=== PATIENT | male | born 1990 | race Caucasian/White ===

== ENCOUNTER 2019-02-12 18:15 | Emergency (ER) | payer SELFPAY ==
--- NOTE | 2019-02-12 18:30 | NUR ---
1ST CALL TO BE TRIAGED, NO ANSWER. PATIENT LEFT WITHOUT BEING SEEN BY DR. ARAYA. NO FURTHER CARE PROVIDED FOR PATIENT. 2ND CALL, NO ANSWER 3RD CALL, NO ANSWER.
== END 2019-02-12 18:30 | disposition left against medical advice (07) ==
LOC: MED 18:15
DX: Z53.21 Procedure and treatment not carried out due to patient leaving prior to being seen by health care provider (principal)

== ENCOUNTER 2019-02-13 14:31 | Emergency (ER) | payer MEDICAID ==
[~2019-02-13] VITALS: Ht 175.3 cm; Wt 74.8 kg
[2019-02-13 14:55] VITALS: BP 125/91
--- NOTE | 2019-02-13 16:04 | NUR ---
PATIENT AMBULATED TO BED #9
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
[2019-02-13 17:16] VITALS: BP 145/79
--- NOTE | 2019-02-13 17:16 | NUR ---
Patient discharged with v/s stable. Written and verbal after care instructions given and explained. Patient alert, oriented and verbalized understanding of instructions. Ambulatory with steady gait. All questions addressed prior to discharge. ID band removed. Patient advised to follow up with PMD. Rx of Motrin and Clindamycin given. Patient educated on indication of medication including possible reaction and side effects. Opportunity to ask questions provided and answered.
== END 2019-02-13 17:16 | disposition home or self-care (01) ==
LOC: MED 14:31
DX: S02.40DA Maxillary fracture, left side, initial encounter for closed fracture (principal); R05 Cough; J45.909 Unspecified asthma, uncomplicated; Y04.0XXA Assault by unarmed brawl or fight, initial encounter; Y93.89 Activity, other specified; Y92.89 Other specified places as the place of occurrence of the external cause; Y99.8 Other external cause status
CPT/HCPCS: 70486; 71045; 81002; 81025; 99284

== ENCOUNTER 2019-02-18 14:42 | Emergency (ER) | payer MEDICAID ==
[~2019-02-18] VITALS: Ht 175.3 cm; Wt 69.9 kg
[2019-02-18 14:45] VITALS: BP 119/50
--- NOTE | 2019-02-18 14:50 | NUR ---
Lakesha isaac in EDM - 02/18/19 [address] BOCANEGRA MADE AWARE OF PATIENTS CONDITION. OXYGEN 2LNC APPLIED.
--- NOTE | 2019-02-18 14:50 | NUR ---
DR. BOCANEGRA MADE AWARE OF PATIENTS CONDITION. OXYGEN 2LNC APPLIED
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
[2019-02-18] MEDS ORDERED: ALBUTEROL SULFATE/IPRATROPIU 3 ML SOL IH ONE (15:00)
[2019-02-18] MEDS ORDERED: predniSONE 20 MG TAB PO ONE (15:00)
[2019-02-18] MEDS ORDERED: ALBUTEROL 0.083% 2.5 MG/3 ML NEBU INH ONE ×2 (15:30)
[2019-02-18] MEDS ORDERED: NACL 0.9% 1,000 ML IV ONE (16:20)
[2019-02-18] MEDS ORDERED: MAG SULF 2000 MG/WATER PREMIX 50 ML IV ONE (16:20)
[2019-02-18] MEDS ORDERED: LORazepam 2 MG/ML VIAL IVP ONE (16:20)
[2019-02-18 17:22] LABS: BASOPHILS % (AUTO) 0.2 % (0.0-2.0); EOSINOPHILS # (AUTO) 0.5 K/uL (0-0.4); EOSINOPHILS % (AUTO) 3.5 % (0.0-4.0); HEMATOCRIT 41.4 % (36-52); HEMOGLOBIN 13.9 g/dL (12.0-18.0); LYMPHOCYTES # (AUTO) 0.4 K/uL (2.0-11.5); MEAN CORPUSCULAR HEMOGLOBIN 30 pg (27-31); MEAN CORPUSCULAR HGB CONC 34 g/dL (33-37); MEAN CORPUSCULAR VOLUME 89.4 fL (80-94); MONOCYTES # (AUTO) 0.4 K/uL (0.8-1.0); MONOCYTES % (AUTO) 3.2 % (1.7-9.3); NEUTROPHILS # (AUTO) 12.3 K/uL (1.8-7.7); NEUTROPHILS % (AUTO) 90.1 % (42.2-75.2); PLATELET COUNT (AUTO) 218 K/uL (140-450); RED BLOOD CELL COUNT(AUTO) 4.63 MIL/uL (4.20-6.10); RED CELL DISTRIBUTION WIDTH 14.4 % (11.6-13.7); WHITE BLOOD COUNT (AUTO) 13.7 K/uL (4.8-10.8)
[2019-02-18 17:30] LABS: ANION GAP 12.6 (8-16); CARBON DIOXIDE 28.7 mmol/L (21-32); CREATININE 0.8 mg/dL (0.7-1.3); POTASSIUM 3.3 mmol/L (3.5-5.1)
[2019-02-18 17:36] LABS: ALBUMIN 3.6 g/dL (3.4-5.0); TOTAL BILIRUBIN 1.5 mg/dL (0.0-1.0)
--- NOTE | 2019-02-18 18:15 | NUR ---
Patient does not wish to proceed with medical care recommended by Dr Mendez. Patient given information related to possible complications, up to and including , which could occur as a result of leaving hospital at this time. Patient verbalizes understanding of risks involved leaving against medical advice. Patient has signed AMA form. Discharge instruction provided. paper handed to the pt. ID band removed.
[2019-02-18 18:18] VITALS: BP 135/91
--- NOTE | 2019-02-25 08:20 | NUR ---
Magnesium IVPB ended at 1830. Addendum: 02/25/19 at 0820 by [email or web address] end time 1820 not 1830 for Magnesium.
== END 2019-02-18 18:21 | disposition left against medical advice (07) ==
LOC: MED 14:42
DX: J45.901 Unspecified asthma with (acute) exacerbation (principal); F41.9 Anxiety disorder, unspecified
CPT/HCPCS: 36415; 71045; 80053; 85025; 87804; 94640; 96365; 96366; 96375; 99284; J2060; J3475; J7030; J7512; J7613; J7620; Q0092

== ENCOUNTER 2019-10-24 00:35 | Inpatient (IN) | payer MEDICAID ==
[~2019-10-24] VITALS: Ht 175.3 cm; Wt 68.9 kg
[2019-10-24 00:43] VITALS: BP 142/104
--- NOTE | 2019-10-24 00:50 | NUR ---
PT BLAYNE ALS FROM HOME FOR POSSIBLE OVERDOSE. PTS FATHER STATED HE TOOK "A HAND FULL" OF OXYCODONE PT STATES HE CONSUMED 3 PILLS. PT AWAKE AND ALERT. no loc. no n,v. no resp distress noted. no signs of sucidal thoughts or si. vss. LUNG SOUNDS CLEAR ALL THROUGHOUT. rx: methadone and xanax. nka. pmh: anxiety
--- NOTE | 2019-10-24 00:50 | NUR ---
PT IS ON A 5150 HOLD BY SHENG CALLOWAY.
--- NOTE | 2019-10-24 01:02 | NUR ---
TELEPSYCH REQUEST INITIATED
--- NOTE | 2019-10-24 01:11 | NUR ---
Lakesha isaca in ED - 10/24/19 at [address] [facility] PSYCH TALKING TO PT THRU TELE PSYCH.
--- NOTE | 2019-10-24 01:11 | NUR ---
PSYCHATRIST TALKING TO PT THRU TELE PSYCH.
[2019-10-24 01:14] LABS: ACETAMINOPHEN 28.7 ug/ml (10-30); ANION GAP 15.7 (8-16); ASPARTATE AMINOTRANSFERASE 21 U/L (15-37); CARBON DIOXIDE 28.4 mmol/L (21-32); CHLORIDE 103 mmol/L (98-107); POTASSIUM 4.1 mmol/L (3.5-5.1); SODIUM SERUM 143 mmol/L (136-145); TOTAL BILIRUBIN 0.6 mg/dL (0.0-1.0); UREA NITROGEN, BLOOD 9 mg/dL (7-18)
[2019-10-24 01:30] LABS: BASOPHILS # (AUTO) 0.1 K/uL (0.00-0.22); BASOPHILS % (AUTO) 0.6 % (0.0-2.0); EOSINOPHILS # (AUTO) 0.9 K/uL (0-0.4); EOSINOPHILS % (AUTO) 10.4 % (0.0-4.0); HEMATOCRIT 43.6 % (36-52); HEMOGLOBIN 14.6 g/dL (12.0-18.0); LYMPHOCYTES # (AUTO) 3.2 K/uL (2.0-11.5); LYMPHOCYTES % (AUTO) 35.8 % (20.5-51.1); MEAN CORPUSCULAR HEMOGLOBIN 30 pg (27-31); MEAN CORPUSCULAR HGB CONC 33 g/dL (33-37); MEAN CORPUSCULAR VOLUME 88.6 fL (80-94); MONOCYTES # (AUTO) 0.8 K/uL (0.8-1.0); MONOCYTES % (AUTO) 8.7 % (1.7-9.3); NEUTROPHILS % (AUTO) 44.5 % (42.2-75.2); PLATELET COUNT (AUTO) 180 K/uL (140-450); RED BLOOD CELL COUNT(AUTO) 4.93 MIL/uL (4.20-6.10); RED CELL DISTRIBUTION WIDTH 14.2 % (11.6-13.7); WHITE BLOOD COUNT (AUTO) 9.1 K/uL (4.8-10.8)
--- NOTE | 2019-10-24 01:31 | NUR ---
SPOKE TO TIM FROM POISION CONTROL AND SHE SUGGESTED 50 G CHARCOAL AND 12 HOUR MEDICAL OBSERVATION AND EKG BE DONE ON PT.
[2019-10-24] MEDS ORDERED: ACTIVATED CHARCOAL 50 GM/240 ML TUBE PO ONE (01:40)
[2019-10-24 01:44] LABS: ALBUMIN 3.8 g/dL (3.4-5.0); CREATININE 0.8 mg/dL (0.7-1.3); GFR ARICAN-AMERICAN 149 mL/min (>90); GLUCOSE 92 mg/dL (74-106)
[2019-10-24 01:45] LABS: SALICYLATE < 2.8 mg/dL (2.8-20.0)
--- NOTE | 2019-10-24 01:48 | NUR ---
EKG DONE AT BEDSIDE
[2019-10-24] MEDS ORDERED: HYDROcodone/APAP 7.5/325 MG 1 TAB PO PRN (01:55)
[2019-10-24] MEDS ORDERED: ONDANSETRON 4 MG/2 ML VIAL IM/IVP PRN (01:55)
[2019-10-24] MEDS ORDERED: DOCUSATE SODIUM 100 MG GELCAP PO PRN (01:55)
[2019-10-24] MEDS ORDERED: ACETAMINOPHEN 325 MG TAB PO PRN (01:55)
[2019-10-24 01:56] LABS: APPEARANCE,URINE SL CLOUDY (CLEAR); BILIRUBIN,URINE NEGATIVE (NEGATIVE); BLOOD, URINE NEGATIVE (NEGATIVE); COLOR,URINE YELLOW (YELLOW); LEUKOCYTE ESTERASE ,URINE NEGATIVE (NEGATIVE); NITRITE, URINE NEGATIVE (NEGATIVE); PH,URINE 5.5 (5.0-9.0); UGLUCOSE NEGATIVE (NEGATIVE)
[2019-10-24] MEDS ORDERED: ALPR1TER PO (02:00)
[2019-10-24] MEDS ORDERED: DOL10 PO (02:00)
[2019-10-24 02:09] LABS: BARBITURATE, URINE NEG. ng/ml (NEG <=200); BENZODIAZEPINE, URINE POS. ng/mL (NEG <=200); CANNABINOID, URINE POS. ng/mL (NEG <=50); COCAINE, URINE NEG. ng/mL (NEG <=300); OPIATE, URINE POS. ng/mL (NEG <=2000); PHENCYCLIDINE SCREEN,URINE NEG. ng/mL (NEG <=25)
[2019-10-24 02:21] LABS: MAGNESIUM 2.2 mg/dL (1.8-2.4); PHOSPHORUS 4.6 mg/dL (2.5-4.9); THYROID STIMULATING HORMONE 5.21 uIU/mL (0.34-3.74)
--- NOTE | 2019-10-24 02:32 | NUR ---
PER VERBAL ORDER FROM DR CAMPBELL, PT PLACED ON O2 AT 2 L/MIN VIA NASAL CANNULA
[2019-10-24] MEDS ORDERED: NALOXONE 0.4 MG/ML VIAL IVP ONE (02:35)
--- NOTE | 2019-10-24 03:00 | NUR ---
Patient will be admitted to care of DR. GUZMAN. Admited to TELE. Will go to room 109A. Belongings list completed. Report to COY MCCAIN.
--- NOTE | 2019-10-24 03:00 | NUR ---
RECEIVED PATIENT VIA GURNEY FROM ED. PATIENT IS AMBULATORY. BEDSIDE REPORT GIVEN FROM ADA. IV ACCESS ON LEFT THUMB 22 GAUGE, PATENT AND INTACT. PATIENT WAS PUT ON 2LPM VIA NASAL CANNULA DUE TO LOW SATURATION. PT SPEAKS GEORGIAN. ORIENTED TO ROOM. BOARD UPDATED. INITIAL ASSESSMENT DONE. INITIAL VITAL SIGNS TAKEN. BED IN LOW, CALL LIGHT WITHIN PATIENT REACH. WILL CONTINUE TO MONITOR PATIENT.
[2019-10-24] MEDS: NACL 0.9% 1,000 ML IV SCH ×4 (03:24→23:30)
[2019-10-24] MEDS ORDERED: KETOROLAC 15 MG/ML VIAL IVP PRN (03:25)
[2019-10-24 04:05] VITALS: BP 141/78
--- NOTE | 2019-10-24 05:00 | NUR ---
SHRADDHA FROM POISON CONTROL CALLED TO CHECK UP ON PATIENT. REQUESTED REDRAW FOR ACETAMINOPHEN LAB. WANTS TO MONITOR ACETAMINOPHEN LEVELS. IF INCREASE IN LEVEL TO CALL POISON CONTROL.
--- NOTE | 2019-10-24 06:26 | NUR ---
PT IN STABLE CONDITION. WILL ENDORSE TO AM SHIFT NURSE FOR CONTINUITY OF CARE.
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
--- NOTE | 2019-10-24 07:45 | NUR ---
RECEIVED A CALL FROM PT'S MOTHER PHILIPPE, SHE INFORMED ME THAT PT HAS A HX OF SEVERE ASTHMA ATTACKS AND NEEDS TO BE ON DAILY METHADONE FOR HIS DRUG ADDICTION. PER PT'S MOTHER, PT GOES TO [facility] IN [place] FOR METHADONE. I NOTIFIED MD DR HOLLIDAY OF THIS INFORMATION, DR HOLLIDAY WILL CALL THE CLINIC TO VERIFY METHADONE DOSE.
[2019-10-24 08:00] VITALS: BP 128/76
[2019-10-24] MEDS ORDERED: clonazePAM 0.5 MG TAB PO PRN (08:05)
[2019-10-24] MEDS: METHADONE 10 MG TAB PO SCH (09:19)
--- NOTE | 2019-10-24 09:24 | NUR ---
AM SCHEDULED METHADONE ADMINISTERED, PT TOLERATED WELL AND WENT BACK TO SLEEP RIGHT AWAY. 2L O2 NC IN PLACE. O2 SAT IS 95% AT THIS TIME.
--- NOTE | 2019-10-24 10:21 | NUR ---
FAXED OVER REQUEST TO [facility] FOR THE RELEASE OF PT'S METHADONE THERAPY RECORD, PER MD ORDER.
[2019-10-24 12:00] VITALS: BP 117/75
--- NOTE | 2019-10-24 13:05 | NUR ---
PT RESTING COMFORTABLY IN BED, NO S/S OF DISTRESS SEEN. 2L O2 NC FLOWING. O2 IS 94%
--- NOTE | 2019-10-24 15:28 | NUR ---
PT'S PARENTS ARE HERE TALKING WITH DR KELLEY.
[2019-10-24 16:00] VITALS: BP 102/63
--- NOTE | 2019-10-24 16:15 | NUR ---
PT GETTING A BREATHING TX AT THIS TIME
[2019-10-24] MEDS: ALBUTEROL SULFATE/IPRATROPIU 3 ML SOL IH PRN (16:28)
--- NOTE | 2019-10-24 19:12 | NUR ---
ENDORSED PT TO METAL SPONGE MAKING MACHINE OPERATOR NURSE. PT IN INSTABLE CONDITION
--- NOTE | 2019-10-24 19:15 | NUR ---
RECEIVED BEDSIDE REPORT FROM AM SHIFT NURSE. PATIENT IS LYING IN BED ASLEEP. VISIBLE CHEST RISE AND FALL NOTED. NO SOB OR DISTRESS. PATIENT IS ON O2 VIA NASAL CANNULA AT 2LPM. IV ACCESS ON LEFT THUMB 22 GAUGE, PATENT AND INTACT. DRESSING NOTED ON RIGHT WRIST, DRY AND INTACT. INITIAL ASSESSMENT DONE. BED IN LOW POSITION. BOARD UPDATED. CALL LIGHT WITHIN PATIENT REACH. WILL CONTINUE TO MONITOR PATIENT.
[2019-10-24 20:05] VITALS: BP 101/71
--- NOTE | 2019-10-24 20:12 | NUR ---
AWAKE AND ALERT PATIENT REFUSING TO USE SUPPLEMENTAL OXYGEN AT THIS TIME
--- NOTE | 2019-10-24 20:30 | NUR ---
VITAL SIGNS TAKEN AT THIS TIME. PATIENT SITTING ON BED WATCHING TV. NO SOB OR DISTRESS NOTED. WILL CONTINUE TO MONITOR PATIENT.
--- NOTE | 2019-10-24 22:01 | NUR ---
ROUNDS DONE. VISIBLE CHEST RISE AND FALL NOTED. CALL LIGHT WITHIN PATIENT REACH. WILL CONTINUE TO MONITOR PATIENT.
[2019-10-25 00:05] VITALS: BP 114/78
--- NOTE | 2019-10-25 00:05 | NUR ---
VITAL SIGNS TAKEN AT THIS TIME. NO DISTRESS NOTED. WILL CONTINUE TO MONITOR PATIENT.
--- NOTE | 2019-10-25 02:15 | NUR ---
ROUNDS DONE. VISIBLE CHEST RISE AND FALL NOTED. CALL LIGHT WITHIN PATIENT REACH. WILL CONTINUE TO MONITOR PATIENT.
[2019-10-25] MEDS: ALBUTEROL SULFATE/IPRATROPIU 3 ML SOL IH PRN ×2 (03:21→12:36)
--- NOTE | 2019-10-25 04:01 | NUR ---
VITAL SIGNS TAKEN. NO DISTRESS NOTED. WILL CONTINUE TO MONITOR PATIENT.
[2019-10-25 04:10] VITALS: BP 130/91
--- NOTE | 2019-10-25 05:30 | NUR ---
PATIENT VOMITED 150ML AT THIS TIME. PATIENT STATES HE WAS NAUSEATED BUT FEELS BETTER AND DOES NOT NEED MEDICATION. WILL CONTINUE TO MONITOR PATIENT.
--- NOTE | 2019-10-25 06:45 | NUR ---
PATIENT HAS BEEN SCREENED AND CATEGORIZED LOW NUTRITION RISK. PATIENT WILL BE SEEN WITHIN 7 DAYS OF ADMISSION. 10/30/19 MILLA TORRES MS, RDN
--- NOTE | 2019-10-25 06:48 | NUR ---
PATIENT IN STABLE CONDITION. SAFETY MEASURES IN PLACE. CALL LIGHT WITHIN PATIENT REACH. WILL ENDORSE TO AM SHIFT NURSE FOR CONTINUITY OF CARE.
[2019-10-25 07:06] LABS: BASOPHILS % (AUTO) 0.4 % (0.0-2.0); EOSINOPHILS % (AUTO) 11.7 % (0.0-4.0); HEMATOCRIT 39.4 % (36-52); HEMOGLOBIN 13.2 g/dL (12.0-18.0); LYMPHOCYTES # (AUTO) 2.3 K/uL (2.0-11.5); LYMPHOCYTES % (AUTO) 27.4 % (20.5-51.1); MEAN CORPUSCULAR HEMOGLOBIN 30 pg (27-31); MEAN CORPUSCULAR HGB CONC 34 g/dL (33-37); MEAN CORPUSCULAR VOLUME 88.9 fL (80-94); MONOCYTES # (AUTO) 0.6 K/uL (0.8-1.0); MONOCYTES % (AUTO) 7.3 % (1.7-9.3); NEUTROPHILS # (AUTO) 4.5 K/uL (1.8-7.7); NEUTROPHILS % (AUTO) 53.2 % (42.2-75.2); PLATELET COUNT (AUTO) 165 K/uL (140-450); RED BLOOD CELL COUNT(AUTO) 4.43 MIL/uL (4.20-6.10); RED CELL DISTRIBUTION WIDTH 14.1 % (11.6-13.7); WHITE BLOOD COUNT (AUTO) 8.4 K/uL (4.8-10.8)
--- NOTE | 2019-10-25 07:15 | NUR ---
RECEIVED BEDSIDE REPORT FROM DIP STAND LOADER NURSE, PT IS ASLEEP, NO S/S OF ACUTE DISTRESS, NO SOB. PT IS CURRENTLY STILL ON 2L O2 NC, O2 SAT IS 95%. PER NIGHT NURSE, PT HAD EPISODE OF EMESIS X 1, AFTER WHICH HE SAID HE FELT BETTER. NO C/O NAUSEA AT THIS TIME. IV SITE L THUMB 22 G, INFUSING NS 100 ML/HR. CALL LIGHT IS WITHIN REACH. WILL CONTINUE TO MONITOR.
[2019-10-25 07:19] LABS: ANION GAP 11.6 (8-16); CARBON DIOXIDE 28.1 mmol/L (21-32); CREATININE 0.7 mg/dL (0.7-1.3); POTASSIUM 3.7 mmol/L (3.5-5.1)
[2019-10-25 07:33] LABS: CHOL/HDL RATIO 3.4 (1-4.5)
[2019-10-25 07:52] LABS: MAGNESIUM 1.9 mg/dL (1.8-2.4); PHOSPHORUS 3.2 mg/dL (2.5-4.9)
[2019-10-25 08:00] VITALS: BP 125/80
[2019-10-25] MEDS: METHADONE 10 MG TAB PO SCH (10:06)
--- NOTE | 2019-10-25 10:10 | NUR ---
SCHEDULE METHADONE ADMINISTERED. PT TOLERATED WELL. I OFFERED PT TO HAVE A BREATHING TX, BUT PT DECLINED AT THIS TIME. HE STATES THAT HE FEELS FINE, AND WILL CALL ME IF HE FEELS LIKE HE NEEDS A BREATHING TX.
[2019-10-25 12:00] VITALS: BP 134/79
[2019-10-25] MEDS: methylPREDNISolone SS 40 MG/ML VIAL IVP SCH ×2 (12:48→20:37)
--- NOTE | 2019-10-25 12:58 | NUR ---
PT HAD AN ASTHMA ATTACK; HE WAS FOUND SITTING UP ON THE BED, HANDS ON HIS KNEES, SKIN FLUSHED AND DIAPHORETIC. BREATHING DEEP AND LABORED. HE WAS STILL ON HIS 2L O2 NC, SATTING ABOUR 88%. RT WAS CALLED IMMEDIATELY, WHERE THEY ADMINISTERED ALBUTEROL BREATHING TX, AND PT'S O2 SATS WENT BACK UP TO THE HIGH 90'S. AFTER THE BREATHING TX PATIENT SAID THAT HE FEELS BETTER. BP 131/84. CURRENTLY O2 IS 95%. DR WALLS MADE AWARE, AND SHE PUT IN ORDERS FOR SCHEDULED SOLUMEDROL.
[2019-10-25] MEDS ORDERED: MUPIROCIN CA NASAL 2% 1GM TUBE NS SCH (14:00)
[2019-10-25] MEDS ORDERED: CHLORHEXADINE GLUC 2% CLOTH TP SCH (14:00)
--- NOTE | 2019-10-25 14:30 | NUR ---
PT RESTING COMFORTABLY IN BED; NO S/S OF DISTRESS OR SOB NOTED AT THIS TIME. O2 SAT 94% ON 3L O2 NC.
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
[2019-10-25 16:00] VITALS: BP 109/71
[2019-10-25] MEDS: NACL 0.9% 1,000 ML IV SCH (18:20)
--- NOTE | 2019-10-25 19:25 | NUR ---
PT ENDORSED TO CAMERA PROTOTYPING ENGINEER NURSE LILIA IN STABLE CONDITION. LILIA AWARE OF PT'S ASTHMA ATTACK TODAY
--- NOTE | 2019-10-25 19:30 | NUR ---
RECEIVED PT AWAKE ON BED, AAOX4, ABLE TO MAKE NEEDS KNOWN, VITAL SIGNS STABLE, SAT 93% ON ROOM AIR, WHEEZING ON AUSCULTATION, NO SOB NOTED, BREATHING TX BY RT, IVF INFUSING WELL, PLAN OF CARE DISCUSSED, MAINTAINED ON ISOLATION FOR MRSA NARES, CALL LIGHT WITHIN REACH.
[2019-10-25 20:00] VITALS: BP 110/62
[2019-10-25] MEDS: ALBUTEROL SULFATE/IPRATROPIU 3 ML SOL IH SCH (20:07)
--- NOTE | 2019-10-25 20:40 | NUR ---
DUE MEDS ADMINISTERED WITH EDUCATION PROVIDED, CRACKERS AND JUICE PROVIDED PER REQUEST, ALL NEEDS ATTENDED.
--- NOTE | 2019-10-25 21:45 | NUR ---
PT'S MOTHER PHILIPPE CALLED AND UPDATED ON PT'S CONDITION, SHE EXPRESS CONCERN AND PREFER PT TO GO TO A REHAB FACILITY WHEN HE GETS DISCHARGE, MADE AWARE THAT A PSYCHIATRIST WILL COME AND EVALUATE THE PT, SINCE AMOS PAINTING WILL NOT BE HERE TOMORROW, SHE PREFER TO DISCUSS THIS WITH CHARGE NURSE, GEOMORPHOLOGIST AND DOCTOR TOMORROW, CHARGE NURSE JONG MADE AWARE AND WILL ENDORSE TO AM NURSE.
--- NOTE | 2019-10-25 22:15 | NUR ---
ROUNDS MADE, SEEN PT WATCHING TV, NO RESP DISTRESS NOTED, MONITORED CLOSELY.
[2019-10-26] VITALS: BP 114/52
[2019-10-26] MEDS: NACL 0.9% 1,000 ML IV SCH ×2 (00:16→03:55)
--- NOTE | 2019-10-26 02:00 | NUR ---
ROUNDS MADE, SEEN PT SLEEPING, ON CONTINUOS PULSE OX WITH SAT-91-92% ON ROOM, NO SOB NOTED, MONITORED CLOSELY.
[2019-10-26 04:00] VITALS: BP 102/53
[2019-10-26] MEDS: methylPREDNISolone SS 40 MG/ML VIAL IVP SCH (04:30)
--- NOTE | 2019-10-26 04:30 | NUR ---
DUE SOLUMEDROL IVP GIVEN, NO RESP DISTRESS NOTED, SAT 91-93% ON ROOM AIR, MONITORED CLOSELY.
[2019-10-26 06:51] LABS: HEMATOCRIT 41.1 % (36-52); HEMOGLOBIN 13.6 g/dL (12.0-18.0); LYMPHOCYTES # (AUTO) 0.5 K/uL (2.0-11.5); LYMPHOCYTES % (AUTO) 3.4 % (20.5-51.1); MEAN CORPUSCULAR HEMOGLOBIN 29 pg (27-31); MEAN CORPUSCULAR HGB CONC 33 g/dL (33-37); MEAN CORPUSCULAR VOLUME 88.2 fL (80-94); MONOCYTES # (AUTO) 0.3 K/uL (0.8-1.0); MONOCYTES % (AUTO) 2.5 % (1.7-9.3); NEUTROPHILS # (AUTO) 12.6 K/uL (1.8-7.7); NEUTROPHILS % (AUTO) 94.1 % (42.2-75.2); PLATELET COUNT (AUTO) 199 K/uL (140-450); RED BLOOD CELL COUNT(AUTO) 4.66 MIL/uL (4.20-6.10); WHITE BLOOD COUNT (AUTO) 13.4 K/uL (4.8-10.8)
--- NOTE | 2019-10-26 07:08 | NUR ---
PT SLEEPING, NO SIGNS OF DISTRESS, REPORT GIVEN TO COY FRY FOR CONTINUITY OF CARE.
--- NOTE | 2019-10-26 07:10 | NUR ---
RECEIVED REPORT FROM SOFTWARE ARCHITECT RN. PATIENT IS NO LONGER ON A 5150 HOLD. PATIENT IS FULL CODE, NKA. CONTACT PRECAUTIONS FOR MRSA TO NARES. AAOX4, ON ROOM AIR. IV TO L THUMB 22G. PATIENT CAME FROM HOME. PATIENT HAS A DISCHARGE ORDER, WILL F/U WITH PATIENTS MOTHER.
[2019-10-26] MEDS: ALBUTEROL SULFATE/IPRATROPIU 3 ML SOL IH SCH (07:13)
[2019-10-26 07:52] LABS: ANION GAP 13.6 (8-16); CARBON DIOXIDE 25.9 mmol/L (21-32); CREATININE 0.7 mg/dL (0.7-1.3); POTASSIUM 4.5 mmol/L (3.5-5.1)
[2019-10-26 08:00] VITALS: BP 132/83
[2019-10-26 08:53] LABS: MAGNESIUM 2.1 mg/dL (1.8-2.4); PHOSPHORUS 3.3 mg/dL (2.5-4.9)
[2019-10-26] MEDS: METHADONE 10 MG TAB PO SCH (09:29)
--- NOTE | 2019-10-26 09:29 | NUR ---
ADMINISTERED MORNING DOSE OF METHADONE.
[2019-10-26] MEDS ORDERED: PRED20TA5 PO (11:21)
[2019-10-26] MEDS ORDERED: ALBU-118 IH (11:21)
--- NOTE | 2019-10-26 11:59 | NUR ---
PATIENT HAS BEEN GIVEN DISCHARGE PAPERWORK. REVIEWED PAPERWORK AND PRESCRIPTION. PATIENT SIGNED PAPERWORK AND VERBALIZED UNDERSTANDING. IV LINE REMOVED, CANNULA INTACT. REMOVED WRISTBAND. PATIENT HAS ALL PERSONAL BELONGINGS WITH HIM. PATIENT HAS BEEN DISCHARGED TO HOME.
== END 2019-10-26 12:00 | disposition home or self-care (01) | DRG 812 ==
LOC: MED 00:35 → MTU 01:56
PROVIDERS: ADMIT General Practice; ATTEND General Practice
DX: T40.2X1A Poisoning by other opioids, accidental (unintentional), initial encounter (principal); G92 Toxic encephalopathy; E02 Subclinical iodine-deficiency hypothyroidism; F41.9 Anxiety disorder, unspecified; J45.909 Unspecified asthma, uncomplicated; T40.7X1A Poisoning by cannabis (derivatives), accidental (unintentional), initial encounter; T42.4X1A Poisoning by benzodiazepines, accidental (unintentional), initial encounter; Z79.899 Other long term (current) drug therapy; Z71.51 Drug abuse counseling and surveillance of drug abuser; Y92.89 Other specified places as the place of occurrence of the external cause
CPT/HCPCS: 36415; 71045; 80048; 80053; 80305; 81003; 83735; 84100; 84443; 85025; 87081; 93005; 94640; 96374; 99285; G0378; G0480; G0482; J2920; J7030; J7620; Q0092

== ENCOUNTER 2019-12-01 01:25 | Emergency (ER) | payer MEDICAID ==
[~2019-12-01] VITALS: Ht 175.3 cm; Wt 72.6 kg
[~2019-12-01 01:25] MED LIST: ALBU-118 IH; ALPR1TER PO; DOL10 PO; PRED20TA5 PO
[2019-12-01 01:27] VITALS: BP 155/80
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
--- NOTE | 2019-12-01 01:35 | NUR ---
pt c/o hernandez as well, 2mm perrla on both eyes brisk. pt says he had only one episode of vomiting, no blurry vision. on 3l nc.
[2019-12-01] MEDS ORDERED: ALBUTEROL SULFATE/IPRATROPIU 3 ML SOL IH ONE ×3 (02:20→04:05)
[2019-12-01] MEDS ORDERED: ACETAMINOPHEN EXTRA STRENGTH 500 MG TAB PO ONE (02:40)
[2019-12-01] MEDS ORDERED: methylPREDNISolone SS 125 MG/2 ML VIAL IVP ONE (02:55)
[2019-12-01] MEDS ORDERED: WATER STERILE 10 ML MC ONE (03:19)
[2019-12-01] MEDS ORDERED: methylPREDNISolone SS 125 MG in WATER STERILE 2 ML IM ONE (03:20)
[2019-12-01] MEDS ORDERED: methylPREDNISolone SS 125 MG/2 ML VIAL ONE (03:20)
--- NOTE | 2019-12-01 04:15 | NUR ---
RT AT BEDSIDE.
[2019-12-01 04:48] VITALS: BP 155/80
--- NOTE | 2019-12-01 04:48 | NUR ---
Patient discharged with v/s stable. Written and verbal after care instructions given and explained. Patient verbalized understanding. Ambulatory with steady gait. All questions addressed prior to discharge. Advised to follow up with PMD. pt stated he was not in pain 0/10 prior to d/c
== END 2019-12-01 04:48 | disposition home or self-care (01) ==
LOC: MED 01:25
DX: J45.901 Unspecified asthma with (acute) exacerbation (principal); R00.0 Tachycardia, unspecified; F11.90 Opioid use, unspecified, uncomplicated; F17.210 Nicotine dependence, cigarettes, uncomplicated; Z79.899 Other long term (current) drug therapy
CPT/HCPCS: 94640; 96372; 99285; J2930; J7620

== ENCOUNTER 2021-01-24 13:02 | Emergency (ER) | payer MEDICAID ==
[~2021-01-24] VITALS: Ht 177.8 cm; Wt 81.6 kg
[2021-01-24 13:15] VITALS: BP 178/114
[2021-01-24] MEDS ORDERED: NALOXONE 0.4 MG/ML VIAL IVP ONE (13:30)
[2021-01-24] MEDS ORDERED: NALOXONE PFS 2 MG/2 ML SYR ONE (13:31)
[2021-01-24] MEDS ORDERED: NALOXONE 0.4 MG/ML VIAL MC SCH (13:35)
== END 2021-01-24 14:26 | disposition left against medical advice (07) ==
LOC: MED 13:02
DX: T40.2X1A Poisoning by other opioids, accidental (unintentional), initial encounter (principal); I15.8 Other secondary hypertension; F15.10 Other stimulant abuse, uncomplicated; F32.9 Major depressive disorder, single episode, unspecified; F17.210 Nicotine dependence, cigarettes, uncomplicated; J45.909 Unspecified asthma, uncomplicated; Y92.89 Other specified places as the place of occurrence of the external cause; Z79.899 Other long term (current) drug therapy
CPT/HCPCS: 93005; 99283; J2310